=== PATIENT | female | born 1945 | race Caucasian/White ===

== ENCOUNTER 2021-09-06 00:17 | Day surgery (SDC) | payer MEDICARE, SELFPAY ==
[2021-08-23 13:47] VITALS: BMI 26.4
--- NOTE | 2021-09-05 18:34 | PM.HPGS ---
History of Present Illness History of Present Illness Consent: Risks, benefits, and alternatives have been discussed and questions answered. Patient agrees to proceed with procedure. Chief complaint: neoplasm screening Narrative: Melba Maddox is a 76 year old female referred for colon cancer screening Review of Systems Review of Systems: All systems reviewed & are unremarkable except as noted in HPI and below PMFSH Past Medical History Medical History Anxiety GERD (gastroesophageal reflux disease) Hyperlipidemia Hypertension DIANE (obstructive sleep apnea) Meds Home Medications and Allergies Home Medications Medication Instructions Recorded Confirmed Type amlodipine 5 mg PO DAILY 08/23/21 08/23/21 History atorvastatin 40 mg PO DAILY 08/23/21 08/23/21 History citalopram 40 mg PO DAILY 08/23/21 08/23/21 History diclofenac sodium 50 mg PO BID 08/23/21 08/23/21 History losartan 50 mg PO DAILY 08/23/21 08/23/21 History omeprazole 40 mg PO DAILY 08/23/21 08/23/21 History oxybutynin chloride 10 mg PO DAILY 08/23/21 08/23/21 History Allergies Allergy/AdvReac Type Severity Reaction Status Date / Time No Known Allergies Allergy Verified 09/06/21 06:58 Exam Resp: Auscultation: clear to auscultation bilaterally Cardio: Rate: regular rate Rhythm: regular rhythm GI: GI Palp: Yes Soft to palpation and No Tenderness to palpation present (GI) Assessment and Plan Assessment and plan (1) Colon cancer screening: Code(s): Z12.11 - Encounter for screening for malignant neoplasm of colon Status: Acute Assessment and Plan: Colonoscopy with possible biopsy or polypectomy or cautery or injection of substances.
[2021-09-06 07:00] VITALS: BP 124/67; PULSE 80; RESP 19; TEMP 36.2; O2SAT 99
[2021-09-06] MEDS: LACTATED RINGERS 1,000 ML 150 ML IV CONT (07:10)
--- NOTE | 2021-09-06 08:01 | P.PNAN_ITS ---
Anes - Initial Pre Proc Eval Procedure: Operation Date: 09/06/21 08:30 Proposed Procedures p Screening Colonoscopy - Torin Patel MD Date/Time: 09/06/21 08:01 Surgeon: Torin Patel MD Pre Op Diagnosis: neoplasm screening Patient Data Age: 76 Gender: F Height: 1.63 m Weight: 66.9 kg Last Vital Signs Temp 36.2 C L 09/06/21 07:00 Pulse 80 09/06/21 07:00 Resp 19 09/06/21 07:00 BP 124/67 09/06/21 07:00 Pulse Ox 99 09/06/21 07:00 Allergies Allergy/AdvReac Type Severity Reaction Status Date / Time No Known Allergies Allergy Verified 09/06/21 06:58 Home Medications Medication Instructions Recorded Confirmed Type amlodipine 5 mg PO DAILY 08/23/21 08/23/21 History atorvastatin 40 mg PO DAILY 08/23/21 08/23/21 History citalopram 40 mg PO DAILY 08/23/21 08/23/21 History diclofenac sodium 50 mg PO BID 08/23/21 08/23/21 History losartan 50 mg PO DAILY 08/23/21 08/23/21 History omeprazole 40 mg PO DAILY 08/23/21 08/23/21 History oxybutynin chloride 10 mg PO DAILY 08/23/21 08/23/21 History Patient hx anesthesia problems: none Family hx anesthesia problems: none Results Review: All pre-operative results and documents have been reviewed as part of the pre-operative evaluation. [facility] Past Medical History Medical History Anxiety GERD (gastroesophageal reflux disease) Hyperlipidemia Hypertension DIANE (obstructive sleep apnea) Anes - Eval Final PreProcedure Day of Procedure 09/06/21 08:01 Patient weight: normal Heart: regular rate and rhythm Lungs: clear to auscultation Airway: Mallampati scale class II Neurological: alert and oriented Last oral intake: >/= 8 hours ASA classification: III Emergent: no Anesthetic plan: proceed Anesthesia type and monitoring: general GIVS and standard monitoring Results Review: All pre-operative results and documents have been reviewed as pa rt of the pre-operative evaluation. Informed Consent: The patient's anesthetic plan and its attendant risks and benefits were discussed with the patient/family/POA. Questions were solicited and answers provided to the satisfaction of the patient/family/POA.
[2021-09-06 08:52] VITALS: BP 144/68; PULSE 83; RESP 21; O2SAT 100
[2021-09-06 09:02] VITALS: BP 119/56; PULSE 77; RESP 13; O2SAT 98
[2021-09-06 09:12] VITALS: BP 122/73; PULSE 80; RESP 14; O2SAT 99
== END 2021-09-06 09:20 | disposition home or self-care (01) ==
PROVIDERS: PCP Internal Medicine; Visit Provider Internal Medicine Gastroenterology
PROC: 0DJD8ZZ Inspection of Lower Intestinal Tract, Via Natural or Artificial Opening Endoscopic (ICD-10-PCS; CPT 45378; principal; 2021-09-06 08:30)
DX: Z12.11 Encounter for screening for malignant neoplasm of colon (principal); K57.30 Diverticulosis of large intestine without perforation or abscess without bleeding; K21.9 Gastro-esophageal reflux disease without esophagitis; I10 Essential (primary) hypertension; E78.5 Hyperlipidemia, unspecified; G47.33 Obstructive sleep apnea (adult) (pediatric); F41.9 Anxiety disorder, unspecified
CPT/HCPCS: G0121; J2704; J7120

== ENCOUNTER 2022-06-27 14:00 | Outpatient (RCR) | payer MEDICARE, SELFPAY ==
--- NOTE | 2022-06-21 08:39 | BUSTOPEVAL1 ---
Assessment and note entered by Sania Cardoso, WORK COUNSELOR Evaluation Information Assessment Status Evaluation Diagnosis Dysphonia Subjective Information Patient reoprts that she has had a lot of drainage , is on allergy medicine and nasal spray . She also reports that her throat hurts at times. She reports that she has a lot of allergies and was taking an allergy medicine that made her drowzy. Patient has been on CPAP for sleep apnea for about six years. She reports she has taken cough medicine for the Throat irritated at the moment but not painful. Doctor said not related to the dog. Reported Pain Level Pain Score 0: Self Report Assessment ST Clinical Summary VOICE EVALUATION This patient was seen for a Voice Evaluation after being diagnosed with Dysphonia and Chronic Hoarseness. Patient reports she feels that her voice started becoming hoarse earlier this year resulting in hoarse/raspy vocal quality. Patient reports increased allergies and that she requires use of hearing aids to facilitate hearing. She stated that since beginning medication for allergies, and also since beginning use of hearing aids, her voice has mildly improved. She acknowledges that without the hearing aids, she speaks more loudly. Patient also reported history of Gastroesophageal Reflux Disease (GERD) and that she takes Omeprazole for it. Today the patient presented with mildly louder than expected vocal loudness. It was difficult to assess pitch as often the machine measure loudness or pitch range could not assess patient's pitch and loudness accurately. Given a sound pressure level (SPL) meter, her pitch averaged 71 decibels, with range noted from 68.2 to 77.3 decibels ( average decibel (dB) level is 68-72 dB). When reviewing vocal hygiene program and gastroesaphageal reflux guidelines, patient voiced that she speaks for lengthy times on the phone with her daughter daily, she speaks at a louder tone when not using hearing aids, slightly lower with hearing aids, that she drinks coffee and Diet Pepsi daily, and also consumes chocolate and citrus fruits. She
--- NOTE | 2022-07-16 09:45 | PCSTNOTE ---
Therapist called patient since she had not called to reschedule. She reported she has been sick the past two weeks and today actually tested positive for COVID and will be unable to attend for the next two weeks. Therapist will contact patient in two weeks to determine need to resume or plan to discharge.
--- NOTE | 2022-07-29 15:24 | PCSTNOTE ---
Therapist attempted to call patient on both home and cell phone last Friday and was unable to get through to either phone number. Therapist tried both numbers again today and the home phone would not accept my call and cell phone went to voicemail and then the message that voice mail has not been set up was heard. Therapist is discharging this chart due to noncompliance with frequency secondary to illness and COVID and then no response to phone calls.
--- NOTE | 2022-07-29 15:30 | STOPDC ---
Assessment and note entered by Sania Cardoso GASKET NOTCHER Evaluation Information Assessment Status Discharge - Pt Not Presen Assessment ST Clinical Summary Patient was seen for an initial voice evaluation secondary to voice disorder, and one treatment session. She was presented with a variety of guidelines/suggestions for vocal hygiene and reduction of Gastroesophageal reflux symptoms. She voiced good understanding and agreed to return however she had to began cancelling sessions secondary to illness and then COVID diagnosis. Therapist did contact patient to schedule immediately after the which is when patient reported COVID diagnosis; therapist allowed two weeks to recover and then began to contact patient however on both days, attempts to call both the home phone and cell phone were met with announcements that her phones were not accepting calls and/or her voicemail was not set up. Patient is being discharged with goals only partially met.
== END 2022-07-30 13:45 | disposition home or self-care (01) ==
LOC: ANHST 14:00
PROVIDERS: PCP Internal Medicine; Visit Provider Otolaryngology
DX: R49.0 Dysphonia (principal)
CPT/HCPCS: 92507; 92524

== ENCOUNTER → 2023-04-30 06:48 | Outpatient (CLI) | payer MEDICARE, SELFPAY ==
--- NOTE | ~2023-04-30 | MR_ITS ---
MRI of the lumbar spine Clinical History: Radiculopathy Technique: Axial T2-weighted images, and sagittal T1-weighted, T2-weighted, and T2 fat-sat images wer e acquired. Findings: No fracture identified. There is minimal grade 1 retrolisthesis of L1 over L2. No suspiciou s bone marrow signal abnormality seen. At L1-L2, there is moderate degenerative disc narrowing. There is mild disc bulge with mild facet art hropathy. No central canal stenosis. There is moderate left neural foraminal narrowing. Right neural foramen preserved. At L2-L3, there is moderate to advanced degenerative disc narrowing. There is mild disc bulge with mo derate facet arthropathy. There is moderate to severe left neural foraminal narrowing, and minimal ri ght neural foraminal narrowing. No central canal stenosis. L3-L4, there is moderate degenerative disc narrowing. There is disc bulge with moderate facet arthrop athy. No central canal stenosis. There is advanced right neural foraminal narrowing. Left neural fora men preserved. At L4-L5, there is minimal disc bulge with mild facet arthropathy. No central canal stenosis. There i s moderate to advanced right neural foraminal narrowing. Left neural foramen preserved. At L5-S1, there is central disc protrusion with mild facet arthropathy. No central canal stenosis. Th ere is mild to moderate right neural foraminal narrowing, and minimal left neural foraminal narrowing . Paravertebral soft tissues are unremarkable.. Impression: Moderate degenerative spondylosis, as detailed above, with multilevel neural foraminal narrowing. Minimal grade 1 retrolisthesis of L1 over L2. Reviewed, dictated and finalized at [facility]. Impression: Moderate degenerative spondylosis, as detailed above, with multilevel neural fo raminal narrowing. Minimal grade 1 retrolisthesis of L1 over L2.
== END ==
PROVIDERS: PCP Internal Medicine; Visit Provider Nurse Practitioner Family
DX: M54.16 Radiculopathy, lumbar region (principal); M43.06 Spondylolysis, lumbar region
CPT/HCPCS: 72148

== ENCOUNTER 2023-08-18 12:00 | Outpatient (CLI) | payer MEDICARE, SELFPAY ==
--- NOTE | ~2023-08-18 | XR_ITS ---
XR hand RT min 3V DATE: 08/18/2023 12:27 INDICATION: Osteoarthritis. Swelling of second digit. TECHNIQUE: 3 views COMPARISON: None FINDINGS: There is surgical replacement of the second metacarpophalangeal joint. There is polyarticular osteoarthritis involving particularly the interphalangeal joints, most severe at the second distal interphalangeal joint. There is prominent osteoarthritic change and mild lateral subluxation of the proximal interphalangeal joint of the third digit. There is resection of the triquetrum. There is osteoarthritic change at the first metacarpophalangeal joint. Osteopenia. No fracture or dislocation, periosteal reaction or bone destruction is detected. IMPRESSION: Status post triquetrum resection Status post second metacarpophalangeal arthroplasty Polyarticular osteophytosis Osteopenia Reviewed, dictated and finalized at [facility]
== END 2023-08-18 12:01 | disposition home or self-care (01) ==
PROVIDERS: PCP Internal Medicine; Visit Provider Plastic Surgery
DX: M19.90 Unspecified osteoarthritis, unspecified site (principal); M85.841 Other specified disorders of bone density and structure, right hand
CPT/HCPCS: 73130

== ENCOUNTER 2023-10-06 11:00 | Outpatient (RCR) | payer MEDICARE, SELFPAY ==
--- NOTE | 2023-09-08 11:59 | OTOPEVAL1 ---
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 She presents with ulnar deviation of the PIP joint and reports of pain, swelling, and stiffness that limits functional use of the hand for writing, gripping, and pinching. She is s/p index finger MCP arthroplasty (05/20/23) and has finished her therapy for this joint. Reported Pain Level Pain Score Mild Pain Additional Pain Score Comments No pain at rest. Pain and discomfort with gentle ROM. Increased pain with resistive pinching and gripping. Assessment OT Clinical Summary Patient referred to OT with dx of OA of the PIP joint of the right index finger. She demonstrates a functional decline in hand use due to residual stiffness and weakness that limits functional pinching and gripping during ADLs. Skilled OT indicated for splinting, joint protection education, modalities, manual therapy, and therapeutic exercise to facilitate optimal functional hand use. Plan of Care Interventions Therapeutic Exercise,Manual Therapy,Therapeutic Activities,Hot Pack/Cold Pack,Check Out for Orthotic/Pr,Ultrasound,Paraffin OT Services Indicated Yes Treatment Frequency and 1-2x/week for 8 visits Duration These treatments will address the objective and functional deficits as defined above. The patient will be advanced safely and appropriately in order for the patient to progress towards his/her prior level of function. Additional exercises will be introduced and as well as a comprehensive home exercise program upon discharge, if needed, ?to ensure carryover of functional gains achieved in the clinic. This treatment plan has been reviewed and agreement upon by the patient.
--- NOTE | 2023-09-08 12:00 | OPREHPOC ---
Outpatient Therapy Plan of Care This is a Multidisciplinary Plan of Care that may contain components documented by all disciplines (PT, OT, and ST.) OT Problem 1 OT Problem #1 Knowledge Deficit OT Goal 1 Goal 1. Patient to be independent with instructed materials. 2. Patient to adhere to splint wearing schedule. Target Visit 8 OT Problem 2 OT Problem #2 Pain OT Goal 1 Goal 1. Patient to report reduced index finger pain during ROM and pinching. Target Visit 8 OT Problem 3 OT Problem #3 Impaired Range of Motion OT Goal 1 Goal 1. Increase functional index finger PIP ROM, measuring improved flexion from 70 degrees to 80- 85 degrees. 2. Increase functional index finger DIP ROM, measuring improved flexion from 50 degrees to 70- 75 degrees. Target Visit 8
--- NOTE | 2023-10-06 11:29 | OTOPDC ---
Assessment and note entered by Soham Moscoso, JEANNER/Syeda, CHT OT Discharge Note 10/06/23 Diagnosis OA, unspecified site Subjective Information Patient reporting continued index finger PIP joint stiffness. She reports the finger does make temporary improvements if she heats and stretches the finger. She was unable to tolerate PIP figure 8 splinting, it made her finger too sore. She reports she would like to continue to work on her HEP on her own at this time and see what kind of progress she can make. Reported Pain Level Pain Score 0: Self Report Additional Pain Score Comments No pain, just sore and stiff. Assessment OT Clinical Summary Patient referred to OT with dx of OA of the PIP joint of the right index finger. She has progressed well with therapy. We trialed splinting , but she was unable to tolerate due to her finger getting sore. We focused on use of modalities, manual therapy, and therapeutic exercise. She has progressed with improved ROM/flexibility and reduced pain with foreign legal consultant and pinching tasks during ADLs. She is currently independent with all materials and reports being ready to discharge. D/C with HEP. Plan of Care OT Services Indicated No
== END 2023-10-06 11:58 | disposition home or self-care (01) ==
LOC: ANHOT 11:00
PROVIDERS: PCP Internal Medicine; Visit Provider Plastic Surgery
DX: M19.90 Unspecified osteoarthritis, unspecified site (principal)
CPT/HCPCS: 97018; 97110; 97140; 97165; L3925